=== PATIENT | female | born 1955 | race Caucasian/White ===

== ENCOUNTER 2019-11-18 20:03 | Emergency (ER) | payer BC ==
[2019-11-18] MEDS ORDERED: Ketorolac 60 MG/2 ML SDV IM ONE (21:30)
--- NOTE | 2019-11-18 21:30 | EDM.PDOC ---
ED HPI GENERAL MEDICAL PROBLEM - General Chief Complaint: Back Pain or Injury Stated Complaint: BACK PAIN Time Seen by Provider: 11/18/19 20:46 Source of Information: Reports: Patient History Limitations: Reports: No Limitations - History of Present Illness INITIAL COMMENTS - FREE TEXT/NARRATIVE: Is a 64-year-old female who presents with complaints of right lateral mid back pain of acute onset. Patient states she was bent over to put on her boots and when she pulled the boots on, felt a sharp pain in her right lateral mid back. The area is worse with movement and tender to palpation. She has no shortness of breath or diaphoresis with this pain. No history of chronic back problems. Denies any numbness or tingling in her extremities or bowel or bladder dysfunction. She has not taken any medications for the pain up until this point. She has no chronic kidney disease. Back Pain Score (Numeric/FACES): 8 - Related Data Allergies Allergy/AdvReac Type Severity Reaction Status Date / Time amoxicillin [Amoxicillin] Allergy Severe Rash Verified 05/24/14 11:53 Sulfa (Sulfonamide Allergy Severe Burning Verified 05/24/14 11:53 Antibiotics) amlodipine besylate Allergy Intermediate Cough Verified 05/24/14 11:53 [[address] [facility]] Carbapenems Allergy Unknown Cannot Verified 05/24/14 11:53 Remember Cephalosporins Allergy Unknown Cannot Verified 05/24/14 11:53 Remember Home Meds: Home Meds Aspirin [Kvng Chewable Aspirin] 81 mg PO DAILY 05/24/14 [History] Levothyroxine [Levothroid] 1 tab PO DAILY 05/24/14 [History] Losartan [Cozaar] 1 tab PO BEDTIME 05/24/14 [History] Metoprolol Succinate [Toprol XL] 1 tab PO DAILY 05/24/14 [History] Nitroglycerin [Nitrostat] 0.4 mg SL ASDIRECTED PRN 05/24/14 [History] [place]-3/DHA/Epa/Fish Oil [Fish Oil] 3 tab PO DAILY 05/24/14 [History] Potassium Chloride [Klor-Con 10] 10 meq PO DAILY 05/24/14 [History] Rosuvastatin [Crestor] 20 mg PO DAILY 05/24/14 [History] Triamterene/Hydrochlorothiazid [Triamterene-HCTZ 37.5-25 MG] 1 tab PO DAILY [History] Cyclobenzaprine [Flexeril] 5 mg PO Q8HR PRN #10 tab 11/18/19 [Rx] Past Medical History Cardiovascular History: Reports: CAD - Past Surgical History GI Surgical History: Reports: Cholecystectomy, Hernia Repair/Other Female Surgical History: Reports: Hysterectomy Social & Family History - Tobacco Use Smoking Status *Q: Never Smoker Second Hand Smoke Exposure: No - Caffeine Use Caffeine Use: Reports: Coffee - Recreational Drug Use Recreational Drug Use: No ED ROS GENERAL - Review of Systems Review Of Systems: Comprehensive ROS is negative, except as noted in HPI. ED EXAM, UPPER BACK/NECK PAIN - Physical Exam Exam: See Below Exam Limited By: No Limitations General Appearance: Alert, WD/WN, No Apparent Distress Cardiovascular/Respiratory: Regular Rate, Rhythm, No M/R/G, Normal Peripheral Pulses, No JVD, Normal Breath Sounds, No Respiratory Distress GI/Abdominal: Normal Bowel Sounds, Soft, Non-Tender, No Organomegaly, No Distention, No Abnormal Bruit, No Mass Back Exam: Normal Inspection, Paraspinal Tenderness (Mid back below the scapula. ). No: Vertebral Tenderness Psychiatric: Normal Affect, Normal Mood Skin Exam: Normal Color, Warm/Dry Course - Vital Signs Last Recorded V/S: Last Vital Signs Temp 97.3 F 11/18/19 20:10 Pulse 66 11/18/19 20:10 Resp 20 11/18/19 20:10 BP 185/88 H 11/18/19 20:10 Pulse Ox 98 11/18/19 20:10 - Orders/Labs/Meds Meds: Medications Discontinued Medications Generic Name Dose Route Start Last Admin Trade Name Luis PRN Reason Stop Dose Admin Ketorolac Tromethamine 60 mg 11/18/19 21:30 11/18/19 21:44 Toradol IM 11/18/19 21:31 60 mg ONETIME ONE Administration - Re-Assessments/Exams Free Text/Narrative Re-Assessment/Exam: On exam, patient is tender to palpation to the right mid back below the right shoulder blade. Pain does not radiate down her arms. It is likely that she is suffering from a muscle strain due to the action of pulling her boots on while in a bent over position. We will give her a shot of Toradol 60 mg IM as well as a prescription for Flexeril she will be driving herself home. Discharge instructions as documented. Departure - Departure Time of Disposition: 21:29 Disposition: Home, Self-Care 01 Condition: Fair Clinical Impression: Muscle strain of upper back - Discharge Information *PRESCRIPTION DRUG MONITORING PROGRAM REVIEWED*: No *COPY OF PRESCRIPTION DRUG MONITORING REPORT IN PATIENT ANTONINO: No Prescriptions: Cyclobenzaprine [Flexeril] 5 mg PO Q8HR PRN #10 tab PRN Reason: Muscle Spasm Instructions: Muscle Strain, [id number] Referrals: Woody Tovar Jr, MD [Primary Care Provider] - Forms: ED Department Discharge Additional Instructions: You were seen in the emergency department today for right upper back pain after pulling on your boots. It is likely that you strained the muscles of your upper back with the pulling my motion. You received an injection of Toradol which is an anti-inflammatory and pain medication in the ER. A prescription for Flexeril has also been sent to [place] [facility]. This medication may be used as prescribed for muscle spasm. I recommend that you also use [id number] ibuprofen 600 mg every 6 hours as an for pain. Since you did receive the injection of Toradol, I recommend that she do not take another dose of ibuprofen until tomorrow morning. You may also use a heat to your back to loosen up the muscles. If you should experience any worsening symptoms, please do not hesitate to return to the emergency department or follow -up with your primary care provider. Sepsis Event Note - Evaluation Sepsis Screening Result: No Definite Risk - Focused Exam Vital Signs: Vital Signs Temp Pulse Resp BP Pulse Ox 11/18/19 20:10 97.3 F 66 20 185/88 H 98 Date Exam was Performed: 11/18/19 Time Exam was Performed: 23:38
== END 2019-11-18 21:45 | disposition home or self-care (01) ==
LOC: JD.ED 20:03
DX: S29.012A Strain of muscle and tendon of back wall of thorax, initial encounter (principal); I25.10 Atherosclerotic heart disease of native coronary artery without angina pectoris; Z88.1 Allergy status to other antibiotic agents; Z88.2 Allergy status to sulfonamides; Z88.8 Allergy status to other drugs, medicaments and biological substances; Z79.82 Long term (current) use of aspirin; Z79.899 Other long term (current) drug therapy; Z90.49 Acquired absence of other specified parts of digestive tract; Z90.710 Acquired absence of both cervix and uterus; X50.1XXA Overexertion from prolonged static or awkward postures, initial encounter
CPT/HCPCS: 96372; 99283; J1885